=== PATIENT | male | born 1975 | race Caucasian/White ===

== ENCOUNTER 2024-04-08 19:19 | Emergency (ER) | payer OTHER, SELFPAY ==
[2024-04-08 19:26] VITALS: BP 167/94; PULSE 110; RESP 20; TEMP 36.8; O2SAT 95; BMI 47.6
--- NOTE | 2024-04-08 19:31 | ECG_ITS ---
[facility] Date: 2024-04-08 Pat Name: Xu Cornejo Department: Room: Gender: Male Bank Clerk: : 1975 Requested By: Jean Carlos Lewis Order Number: [id number] Georges MD: ZI MARINELLI Measurements Intervals [place] Rate: 101 P: 46 FL: 182 QRS: 52 QRSD: 106 T: 50 QT: 342 QTc: 444 Interpretive Statements SINUS TACHYCARDIA NONSPECIFIC T-WAVE ABNORMALITY ABNORMAL RHYTHM ECG No previous ECG available for comparison Electronically Signed On 04-08-2024 21:05:56 CDT by ZI MARINELLI [email or web address]
--- NOTE | 2024-04-08 19:43 | XRR_ITS ---
PROCEDURE INFORMATION: Exam: XR Chest Exam date and time: 04/08/2024 8:05 PM Age: 48 years old Clinical indication: Pain; Chest pressure; Additional info: Chest pain TECHNIQUE: Imaging protocol: Radiologic exam of the chest. Views: 1 view. COMPARISON: CR XR chest 1V [id number] 10/21/2018 8:16 AM FINDINGS: Lungs: Scarring versus atelectasis in the right lung base. Pleural spaces: No pleural effusion or pneumothorax noted. Heart/Mediastinum: There is cardiomegaly. Bones/joints: No acute osseous abnormality. Intraperitoneal space: There is no free intraperitoneal gas. XR/XR chest 1V portable [id number] IMPRESSION: Scarring versus atelectasis in the right lung base.
--- NOTE | 2024-04-08 19:43 | ECG_ITS ---
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
--- NOTE | 2024-04-08 20:06 | ED_ITS ---
HPI - Chest Pain 2 General: Chief Complaint: Chest Pain Stated Complaint: chest pain, sob Time Seen by Provider: 04/08/24 20:00 History of Present Illness: Patient presents to the ER after his heart was racing he started having chest pressure. Patient said he had 1 episode of this last night that all lasted about 5 minutes while is in bed. When away on its own. And then today while he is making a cup of coffee is started up again lasted about 25 minutes he noticed his heart rate was about 230 beats a minute on his pulse ox he did some breathing and calm exercises and go down to about 150. Then he proceeded to come to the ER but stopped his neighbors house and that his neighbor drive him the rest the way here. Upon arrival his heart rate was 110 and he said he is feeling much better but he still has pressure in his chest. Patient said he had a cardiac cath approximately 5 years ago after he had a stroke and it was negative. Patient's not had any follow-up since then. Related Data Allergies Allergy/AdvReac Type Severity Reaction Status Date / Time No Known Allergies Allergy Verified 04/08/24 19:31 Review of Systems 2 General: Reports: 10 or more systems reviewed and unremarkable except in HPI and below Physical Exam 2 Const: COMMON NORMALS: no acute distress, average body habitus, patient oriented x3, no limitations, healthy appearing, alert and well nourished HENMT: COMMON NORMALS: normocephalic, atraumatic, hearing grossly normal bilaterally, external ears normal, Normal external nose present and moist oral mucous membranes HEAD & SCALP: normocephalic and atraumatic NOSE: Normal external nose present EXTERNAL EAR: Yes external ears normal Neck/C-Spine: COMMON NORMALS: full ROM, no lymphadenopathy, supple, no meningeal signs, no JVD and Thyroid normal THYROID: Thyroid normal Chest: COMMONS NORMALS: normal inspection of the chest and normal palpation of entire chest wall Resp: COMMON NORMALS: normal respiratory effort, No retractions, No use of accessory muscles and clear to auscultation bilaterally AUSCULTATION: clear to auscultation bilaterally Cardio: COMMON NORMALS: no JVD, regular rhythm, S1 normal heart sound present, S2 normal heart sound present, No gallops present (Cardio), No clicks present (Cardio), No murmurs present (Cardio) and No rub (Cardio); negative for regular rate (Mildly tachycardic) RATE: abnormal rate (Mildly tachycardic) RHYTHM: regular rhythm HEART SOUNDS: S1 normal heart sound present and S2 normal heart sound present GI: COMMON NORMALS: Normal to inspection, nondistended, normoactive bowel sounds present, Soft to palpation, non-tender, No hepatosplenomegaly present and no masses PALPATION: Yes Soft to palpation and Yes No hepatosplenomegaly present Neuro: COMMON NORMALS: patient oriented x3 SENSORIUM/ORIENTATION: Yes alert MENINGEAL SIGNS: Yes no meningeal signs Course 2 Vital Signs: Vital signs: Vital Signs Temperature 98.2 F 04/08/24 19:26 Pulse Rate 96 04/08/24 22:09 Respiratory Rate 20 H 04/08/24 22:09 Blood Pressure 158/105 04/08/24 22:09 Pulse Oximetry 94 04/08/24 22:09 Oxygen Delivery Me thod Room Air 04/08/24 22:09 MDM - Chest Pain Medical Decision Making Discussed the initial labs chest x-ray troponin with the patient. Patient's initial troponin was around 110, his 2-hour was around 267 for delta of approximately a +157, patient was pain-free during his stay in the ER but his heart rate continued to be between 100 110 bpm, I discussed this in detail and the potential severity of it leading to a higher mortality morbidity including heart ischemia, myocardial infarction and . Patient is adamant about not wanting to stay. I point blank told him he may go home and have a heart attack and . He is okay with these risks as he does not want to stay he says he will follow-up with his doctor in the morning. I told him we will have him sign out AGAINST MEDICAL ADVICE because our advice is that he stays in the hospital or least in the ER for serial troponins and EKGs and potentially nutrition helper follow-up. Patient says he understands all this but does not want to stay and insist on going home. Medical Records I reviewed the patient's medical records. Lab Data I reviewed the patient's lab results. 04/08/24 20:08 04/08/24 20:08 Radiology Impressions Chest X-Ray 04/08/24 19:43 IMPRESSION: Scarring versus atelectasis in the right lung base. Laboratory Results WBC 15.30 10^3/uL (3.29-11.43) H 04/08/24 20:08 RBC 5.77 10^6/uL (3.85-5.65) H 04/08/24 20:08 Hgb 15.50 g/dL (11.27-16.99) 04/08/24 20:08 Hct 48.0 % (37-53) 04/08/24 20:08 MCV 83.2 fl (82-101) 04/08/24 20:08 MCH 26.9 pg (27-33) L 04/08/24 20:08 MCHC 32.3 g/dL (30-55) 04/08/24 20:08 RDW 15.6 % (12.1-15.1) H 04/08/24 20:08 Plt Count 296 10^3/cmm (157-399) 04/08/24 20:08 MPV 9.4 fL (7.4-10.4) 04/08/24 20:08 Neut % (Auto) 72.5 % 04/08/24 20:08 Lymph % (Auto) 20.3 % 04/08/24 20:08 [place] % (Auto) 5.6 % 04/08/24 20:08 Eos % (Auto) 1.0 % 04/08/24 20:08 Baso % (Auto) 0.3 % 04/08/24 20:08 Neut # (Auto) 11.08 10^3/uL (1.8-7.7) H 04/08/24 20:08 Lymph # (Auto) 3.1 10^3/uL (0.8-4.8) 04/08/24 20:08 [place] # (Auto) 0.9 10^3/uL (0.2-0.9) 04/08/24 20:08 Eos # (Auto) 0.2 10^3/uL (0.0-0.8) 04/08/24 20:08 Baso # (Auto) 0.1 10^3/uL (0.0-0.1) 04/08/24 20:08 Nucleated RBC % (auto) 0 % 04/08/24 20:08 Nucleated RBCs # 0.0 /100WBC 04/08/24 20:08 Sodium 137 mmol/L (136-145) 04/08/24 20:08 Potassium 4.0 mmol/L (3.5-5.1) 04/08/24 20:08 Chloride 100 mmol/L (98-107) 04/08/24 20:08 Carbon Dioxide 24 mmol/L (22-29) 04/08/24 20:08 Anion Gap 17.0 (5-19) 04/08/24 20:08 BUN 12 mg/dL (6-20) 04/08/24 20:08 Creatinine 0.9 mg/dL (0.7-1.2) 04/08/24 20:08 GFR Calculation 89.3 mL/min (90-130) L 04/08/24 20:08 Glucose 104 mg/dL (65-115) 04/08/24 20:08 Calculated Osmolality 284 mOsm/kg (285-295) L 04/08/24 20:08 Calcium 8.8 mg/dL (8.5-10.5) 04/08/24 20:08 Total Bilirubin 0.2 mg/dL (0.15-1.2) 04/08/24 20:08 AST 46 U/L (0-40) H 04/08/24 20:08 ALT 47 U/L (0-41) H 04/08/24 20:08 Alkaline Phosphatase 90 U/L (40-130) 04/08/24 20:08 Troponin T Baseline 110 ng/L (0-15) H* 04/08/24 20:08 Troponin T 120 Minute 267.6 ng/L (0-15) H 04/08/24 21:52 Delta Troponin T 157.6 ABS# (0-10) H* 04/08/24 21:52 Total Protein 7.3 g/dL (6.6-8.7) 04/08/24 20:08 Albumin 4.1 g/dL (3.5-5.2) 04/08/24 20:08 Globulin 3.2 g/dL (1.3-4.6) 04/08/24 20:08 All radiology interpretation(s) finalized by discharge Discharge Plan Discharge Patient Disposition: Left Against Medical Advice Clinical Impression: Left against medical advice Condition: Stable Patient Instructions: Against Medical Advice (ED) Coding Level of Care Code ED Business Analytics Manager for Brandyn Clements
[2024-04-08 20:14] VITALS: BP 175/95; PULSE 103; RESP 18; O2SAT 94
[2024-04-08 20:18] LABS: Basophils # 0.1 10^3/uL (0.0-0.1); Basophils % 0.3 %; Eosinophils # 0.2 10^3/uL (0.0-0.8); Lymphocytes # 3.1 10^3/uL (0.8-4.8); Lymphocytes % 20.3 %; Mean Corpuscular HGB Conc 32.3 g/dL (30-55); Mean Corpuscular Hemoglobin 26.9 pg (27-33); Mean Corpuscular Volume 83.2 fl (82-101); Mean Platelet Volume 9.4 fL (7.4-10.4); Monocytes # 0.9 10^3/uL (0.2-0.9); Monocytes % 5.6 %; Neutrophils # 11.08 10^3/uL (1.8-7.7); Neutrophils % 72.5 %; Nucleated Red Blood Cells % 0 %; Platelet Count 296 10^3/cmm (157-399); Red Blood Count 5.77 10^6/uL (3.85-5.65); Red Cell Distribution Width 15.6 % (12.1-15.1)
[2024-04-08 20:22] VITALS: BP 167/80; PULSE 107; RESP 22; O2SAT 95
[2024-04-08 20:37] LABS: Alanine Aminotransferase 47 U/L (0-41); Albumin Level 4.1 g/dL (3.5-5.2); Alkaline Phosphatase 90 U/L (40-130); Aspartate Amino Transferase 46 U/L (0-40); Blood Urea Nitrogen 12 mg/dL (6-20); Calcium 8.8 mg/dL (8.5-10.5); Carbon Dioxide 24 mmol/L (22-29); Chloride 100 mmol/L (98-107); Creatinine Clr Calc Pharmacy 170.9583; Globulin 3.2 g/dL (1.3-4.6); Glomerular Filtration Rate 89.3 mL/min (90-130); Glucose 104 mg/dL (65-115); Osmolality Calculated 284 mOsm/kg (285-295); Sodium 137 mmol/L (136-145); Total Bilirubin 0.2 mg/dL (0.15-1.2); Total Protein 7.3 g/dL (6.6-8.7)
[2024-04-08 20:42] LABS: Troponin(5th) Baseline 110 ng/L (0-15)
[2024-04-08 21:09] VITALS: BP 147/90; PULSE 103; RESP 16; O2SAT 94
--- NOTE | 2024-04-08 21:43 | ECG_ITS ---
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 Measurements Intervals [place] Rate: 93 P: 56 [place]: 171 QRS: 63 QRSD: 103 T: 64 QT: 346 QTc: 431 Interpretive Statements SINUS RHYTHM Compared to ECG 04/08/2024 20:48:26 Sinus tachycardia no longer present T-wave abnormality no longer present Electronically Signed On 04-09-2024 22:51:10 CDT by Shonna Hernandez M.D. [email or web address]
[2024-04-08 22:09] VITALS: BP 158/105; PULSE 96; RESP 20; O2SAT 94
[2024-04-08 22:15] LABS: Troponin 5 2HR 267.6 ng/L (0-15); Troponin 5 2HR Delta 157.6 ABS# (0-10)
== END 2024-04-08 22:56 | disposition left against medical advice (07) ==
PROVIDERS: Emergency Provider Emergency Medicine
DX: Z53.29 Procedure and treatment not carried out because of patient's decision for other reasons (principal)
CPT/HCPCS: 71045; 80053; 84484; 85025; 93005; 99285

== ENCOUNTER 2024-05-07 09:14 | Outpatient (CLI) | payer OTHER, SELFPAY ==
--- NOTE | 2024-05-07 09:18 | CT_ITS ---
WS: [id number] LDCT LUNG CANCER SCREENING TECHNIQUE: Noncontrast CT of the chest with coronal and sagittal reformatted images. CLINICAL INFORMATION: NICOTINE DEPENDENCE,CIGARETTES COMPARISON: None. DLP: 331.67 mGy.cm DIvol: Mean CTDIvol: 8.10 (mGy) All CT scans at [facility] use at least one of these dose optimization techniques: automat ed exposure control; mA and/or kV adjustment per patient size (includes targeted exams where dose is matched to clinical indication); or iterative reconstruction. FINDINGS: A few tiny nodules RIGHT middle lobe. No suspicious pulmonary parenchymal abnormalities. Normal calib er thoracic aorta. No mediastinal or hilar lymphadenopathy. No axillary lymphadenopathy. Adrenal glan ds are normal. Normal GE junction. LEFT upper pole renal cyst partially visualized measuring 4.[address]/CT lung screening [id number] IMPRESSION: LUNG-RADS: 2-Benign Appearance or Behavior FOLLOW UP: 12 Month: Continue annual screening with LDCT
== END 2024-05-07 09:15 | disposition home or self-care (01) ==
LOC: RAD 09:16
PROVIDERS: PCP Family Medicine; Visit Provider Family Medicine
DX: Z12.2 Encounter for screening for malignant neoplasm of respiratory organs (principal); F17.210 Nicotine dependence, cigarettes, uncomplicated; R91.8 Other nonspecific abnormal finding of lung field; N28.1 Cyst of kidney, acquired
CPT/HCPCS: 71271